=== PATIENT | female | born 1955 | race Caucasian/White ===

== ENCOUNTER → 2017-05-12 | Day surgery (SDC) | payer BC ==
[~2017-05-12] MED LIST: GLUCOPHAGE500 MG PO; GLUCOTROL PO; METOPROLOL; OMEPRAZOLE40 M1 PO; PROTONIX PO; PROTONIX20 MG PO; TOPROL XL PO; TRIGLIDE50 MG PO; VOLTAREN75 MG PO; ZOCOR
--- NOTE | ~2017-05-12 | OR ---
Unit #: [id number] #: [id number] Patient: BOBO LAU [id number] [address] [place], [place] [address] [id number] MR#: [id number] NAME: BOBO LAU ROOM: Date of Procedure: 05/12/2017 Admission Date: 05/12/2017 Surgeon: Jaron Daley M.D. : 1955 Attending Physician: Jaron Daley M.D. Primary Care Physician: Tone Yost Jr., M.D. OPERATIVE REPORT PREOPERATIVE DIAGNOSES The patient has come for surveillance colonoscopy. He has personal history of colonic polyps removed in the past. PROCEDURES PERFORMED Colonoscopy up to cecum and terminal ileum with good prep and excellent visualization. POSTOPERATIVE DIAGNOSES Small internal hemorrhoids. Otherwise, normal examination up to cecum. The quality of the prep was excellent. No polyps were seen. RECOMMENDATIONS Repeat colonoscopy in 5 years. SEDATION USED MAC. DESCRIPTION OF PROCEDURE Following detailed explanation of the potential risks and complications of a colonoscopy, namely perforation, bleeding, and complications related to sedation, the patient was brought to GI lab and laid in the left lateral decubitus position. A digital rectal examination was performed, which was normal. Lubricated tip of the Olympus video colonoscope was inserted through the anus and advanced under direct vision. The scope was advanced and passed up to sigmoid into descending colon. No diverticula were noticed in this area. The scope tip was then navigated all the way up to cecum with visualization of the ileocecal valve and the appendiceal orifice. Preparation was excellent with good visualization and photodocumentation was obtained. Last several inches of the terminal ileum also visualized after intubation of the ileocecal valve and appeared normal. Successive segments of the colonic mucosa were examined upon withdrawal and appeared unremarkable. There being no polyps, mass lesions, AVMs, or diverticula. The patient did have small internal hemorrhoids seen at the anal verge on retroflexion. The scope was then withdrawn. The patient returned to the recovery area. He tolerated the procedure without any postprocedure complications. Dictated by... Jaron Daley M.D. Unit #: [id number] #: [id number] Patient: BOBO LAU BORA/toma TD: 05/12/2017 13:27 JOB #: [id number] CC: Tone Yost Jr, M.D. OPERATIVE REPORT Page 1 of 1 X Jaron Daley MD X PROCEDURE OPERATIVE NOTE
== END | disposition home or self-care (01) ==
LOC: COPS 08:03
DX: Z12.11 Encounter for screening for malignant neoplasm of colon (principal); K64.8 Other hemorrhoids; E11.9 Type 2 diabetes mellitus without complications; I10 Essential (primary) hypertension; K21.9 Gastro-esophageal reflux disease without esophagitis; M19.90 Unspecified osteoarthritis, unspecified site; Z86.010 Personal history of colon polyps; Z79.84 Long term (current) use of oral hypoglycemic drugs; Z79.899 Other long term (current) drug therapy
CPT/HCPCS: 82947